=== PATIENT | male | born 1950 | race Caucasian/White ===

== ENCOUNTER 2021-05-10 08:52 | Day surgery (SDC) | payer MEDICARE, SELFPAY ==
--- NOTE | 2021-05-10 08:15 | PM.PREOP ---
Pre-operative Note COVID-19 COVID-19 status: Negative Interval Note History & Physical reviewed/Exam performed by Physician: Yes Changes to H&P: No
--- NOTE | 2021-05-10 08:15 | PM.OP.1 ---
Operative Date/Time/Diagnoses Date of procedure: 05/10/21 Time of procedure: 11:45 Procedure & Clinicians Procedure: Preoperative diagnoses: 1. Left complex surgery with use of capsular dye. 2. Mature or advanced nuclear sclerotic and cortical cataract with poor visibility of the anterior capsule increasing surgical risks of complications. 3. 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 4. History of alcoholism 5. Prostatic hypertrophy 6. Cardiac stents with cardio vascular disease 7. Hiatal hernia 8. Previous myocardial infarction 9. Gout 10. Hearing loss Postoperative diagnoses: 1. Left complex surgery with use of capsular dye, 2. Placement of a posterior chamber intraocular lens implant. Surgeon: Bernadine Ibrahim MD Complications: none Specimen: None Implant: DIBOO+20.5 Blood loss: None Anesthesia: Retrobulbar with monitored standby. Description of procedure: Dictated by: Bernadine Ibrahim MD Copy to: [facility] Post operative diagnoses: 1. Left complex cataract removed with use of capsular dye with placement of a posterior chamber intraocular lens. 2. Floppy eyelid syndrome was present. Procedure: Complex Phacoemulsification with posterior chamber intraocular lens implant Surgeon: Bernadine Ibrahim MD Blood loss: None Anesthesia: Retrobulbar with monitored standby Description of procedure: Patient has presented with advanced cataract causing decreased vision that driving and reading. He had no eye exams in several years and presented with advanced disease. The patient wants surgery to improve vision. Due to density of cataract will need capsular dye and he may need a Maluygin ring due to his possible floppy iris syndrome. He understands the extra risk of surgery during the COVID-19 epidemic and wishes to proceed. He has multiple medical conditions. He has tested negative for active COVID-19 virus within 72 hours of the procedure. The patient was taken to the operating room and given IV sedation. A retrobulbar block consisting of 6 cc of 2% xylocaine without epinephrine mixed half and half with 0.5% Marcaine with 1 cc of hyaluronidase added is placed between the medial and lateral 1/3 of the inferior orbital rim. Lid akinesia is obtain with 1% xylocaine with epinephrine infiltrated along the lid margin. The eye is manually massaged for 30 sec, prepped using Betadine solution, and draped in the usual sterile fashion. Temporal approach was made, a 1 mm side-port incision was performed 90 degrees from the planned corneal wound. Phenylephrine 1.5% mixed with 1% xylocaine 0.2 cc was placed into the anterior chamber. An air bubble was placed and Visudyne dye was placed to improve visibility of the anterior capsule. The dye was irrigated out to reduce bubbles. Endocoat followed by Healon was then placed. A 2.6 mm clear incision with a 2.6 mm blade was placed. The iris was too dilated to put in a capsular tension ring and surgery proceeded without using viscoelastic to keep the iris in position. A 360 degree capsulorrhexis style capsulotomy was then performed with a cystitome needle on a Healon. Hydrodelineation and hydrodissection were performed. The phacoemulsification unit is introduced, and sculpting used to groove the central lens. It is then removed in chopping mode. At this point the IA did experience floppy iris syndrome with the iris prolapsing to the side port and to the main wound. Extra EndoCoat was placed in reposition the iris. Epi nucleus is removed with epinuclear mode and irrigation aspiration was used to remove the peripheral cortex. The posterior capsule is polished. The intraocular lens is selected, inspected, power confirmed, and placed in the posterior chamber. The pupil was constricted with Miostat due to the floppy iris. A small epinuclear cortical remnant was also removed. The wound was stromally hydrated and tested for leaks, there was none and was left sutureless. Vigamox 0.1 cc was placed into the anterior chamber. Kenalog 0.2 cc was placed in the superior subconjunctival space. A bandage contact lens was placed for extra wound security. A drop of antibiotic and was placed and the eye was patched and shielded. The patient was stable and returned to the recovery room in excellent condition. He will take tamsulosin this morning postoperatively for prostate discomfort. For his right eye surgery a Maluygin ring will be used if possible. Dictated by: Bernadine Ibrahim MD Copy to: [facility] Same procedure as scheduled: Yes
[2021-05-10] MEDS: PROPARACAINE 0.5% OPHTH SOL 2 DROPS EYE-OP (10:13)
[2021-05-10] MEDS: CATARACT EYE COMPOUND (10 DROPS/SYRINGE) 3 DROPS EYE-OP (10:21)
[2021-05-10 10:42] VITALS: BP 179/91; PULSE 58; RESP 16; TEMP 36.6; O2SAT 99; BMI 27.8
[2021-05-10 10:58] VITALS: BMI 27.8
[2021-05-10] MEDS: LIDOCAINE 2% 4 ML, BUPIVACAINE 0.5% (PF) 4 ML, HYALURONIDASE 150 UNIT INJ (12:35)
[2021-05-10] MEDS: ERYTHROMYCIN OPHTH 1 GM OINT 1 APPLIC EYE-LEFT (12:46)
[2021-05-10] MEDS: MOXIFLOXACIN INJ 4 MG/0.8 ML VIAL 0.5 MG EYE-OP (12:47)
[2021-05-10] MEDS: HYALURONATE SODIUM 30 MG-10 MG/ML SYRINGES 1 BOX INTRAOCULA (12:47)
[2021-05-10] MEDS: PHENYLEPHRINE/LIDOCAINE VIAL (OR) 0.2 ML EYE-OP (12:48)
[2021-05-10] MEDS: TRYPAN BLUE 0.5 ML SYRINGE INJ (12:48)
[2021-05-10] MEDS: TRIAMCINOLONE 50 MG/5 ML VIAL INJ (12:48)
[2021-05-10] MEDS: BALANCED SALT IRRIG SOLN NO.2 500 ML, EPINEPHrine 1 MG IRR (12:49)
[2021-05-10] MEDS: CARBACHOL 1.5 ML VIAL INJ (13:19)
[2021-05-10 13:35] VITALS: BP 176/97; PULSE 61; RESP 18; TEMP 36.8; O2SAT 99
== END 2021-05-10 13:45 | disposition home or self-care (01) ==
PROVIDERS: Family Provider Nurse Practitioner; PCP Nurse Practitioner; Referring Provider Ophthalmology; Visit Provider Ophthalmology
PROC: (CPT 66984; principal; 2021-05-10 11:45)
DX: H25.812 Combined forms of age-related cataract, left eye (principal); I25.2 Old myocardial infarction; F17.210 Nicotine dependence, cigarettes, uncomplicated
CPT/HCPCS: 66984; J0171; J2704; J3301; J3470

== ENCOUNTER → 2023-02-12 14:43 | Outpatient (CLI) | payer MEDICARE, SELFPAY | PROVIDERS: Family Provider Nurse Practitioner; PCP Nurse Practitioner; Visit Provider Urology | DX: N40.0 Benign prostatic hyperplasia without lower urinary tract symptoms (principal) | CPT/HCPCS: 87086 ==

== ENCOUNTER 2023-04-11 10:19 | Emergency (ER) | payer OTHER, SELFPAY ==
[2023-04-11] VITALS (28 sets, daily range): BP systolic 77–150; BP diastolic 50–85; PULSE 56–100; RESP 12–25; TEMP 36.9; O2SAT 95–99; BMI 28.3
--- NOTE | 2023-04-11 10:30 | DI.RAD.S_ITS ---
PROCEDURE: XR CHEST 1V INDICATIONS: chest pain TECHNIQUE: One view of the chest was acquired. COMPARISON: None. FINDINGS: Surgical changes and devices: None. Lungs and pleura: Lungs are clear. No pleural effusions or pneumothorax. Mediastinum: Mediastinal contours appear normal. Heart size is normal. Bones and chest wall: No suspicious bony lesions. Overlying soft tissues appear unremarkable. IMPRESSION: No acute cardiopulmonary process. Dictated by: Andrea Hogue M.D. on 04/11/2023 at 11:49 Approved by: Andrea Hogue M.D. on 04/11/2023 at 11:50
[2023-04-11 10:38] LABS: Add Manual Diff / Slide Review NO; Basophils Absolute Auto 0 /uL (0-100); Basophils Percent Auto 0.5 % (0-2); Eosinophils Absolute Auto 100 /uL (0-450); Eosinophils Percent Auto 0.9 % (2-4); Hemoglobin 14.7 g/dL (13.5-17.5); Lymphocytes Absolute Auto 900 /uL (1100-4500); Lymphocytes Percent Auto 11.6 % (25-40); Mean Corpuscular Hemoglobin 31.3 PG (26-34); Mean Corpuscular Volume 89.5 fL (80-100); Monocytes Absolute Auto 700 /uL (0-900); Monocytes Percent Auto 9.1 % (3-14); Neutrophils Absolute Auto 5800 /uL (1500-7000); Neutrophils Percent Auto 77.9 % (50-75); Platelet Count 234 X10^3/uL (150-400); Red Blood Cell Count 4.69 X10^6/uL (4.5-5.9); Red Cell Distribution Width 13.7 % (11.6-14.8); White Blood Cell Count 7.4 X10^3/uL (4.5-11.0)
[2023-04-11 10:45] LABS: Prothrombin Time 11.3 SECONDS (10.1-12.7)
[2023-04-11 10:51] LABS: Alanine Aminotransferase 16 IU/L (<50); Albumin 4.1 g/dL (3.5-5.0); Albumin Globulin Ratio 1.3 (1.0-2.8); Alkaline Phosphatase 71 U/L (38-126); Aspartate Aminotransferase 20 IU/L (17-59); BUN Creatinine Ratio 8.9 (6-22); Bilirubin Total 0.5 mg/dL (0.2-1.3); Blood Urea Nitrogen 28 mg/dL (9-20); Carbon Dioxide 20 mmol/L (22-32); Chloride 103 mmol/L (98-107); Estimated Glomerular Filt Rate 20 mL/min (>60); Globulin 3.2 g/dL (1.7-4.1); Glucose 135 mg/dL (80-110); HEMOLYSIS 18 (0-50); Potassium 3.9 mmol/L (3.4-5.1); Sodium 134 mmol/L (137-145); Total Protein 7.3 g/dL (6.3-8.2)
[2023-04-11 10:52] LABS: Lactate (Lactic Acid) 1.7 mmol/L (0.7-2.1)
--- NOTE | 2023-04-11 11:00 | ED_ITS ---
HPI - Weakness General Chief complaint: Weakness Stated complaint: Weakness Time Seen by Provider: 04/11/23 10:27 Source: patient and EMS Mode of arrival: EMS History of Present Illness HPI Narrative: Patient brought in by air Flight/ambulance from [place], for 1 week of generalized malaise weakness decreased oral intake decreased drinking and eating. Has had coughing burning sensation in the chest and abdomen. No known sick contacts. Patient is being treated for UTI and currently on antibiotics he states. Abdominal pain. Feels very tired and weak when walking. Orthostatics were positive. Systolic 77 when he stood up and felt very dizzy and weak. Patient states does not feel like a stroke or heart attack Related Data Home Medications Medication Instructions Recorded Confirmed aspirin 325 mg tablet 325 mg PO QDAY ##2 12/09/12 02/20/23 acyclovir 800 mg tablet 800 mg PO DAILY 05/10/21 02/20/23 Previous Rx's Medication Instructions Recorded omeprazole 20 mg capsule,delayed 20 mg PO BID PRN #90 caps 02/24/16 release atorvastatin 10 mg tablet (Lipitor) 10 mg PO HS #90 tabs 09/27/16 tamsulosin 0.4 mg capsule (Flomax) 0.4 mg PO QDAY #7 caps 03/11/17 Allergies Allergy/AdvReac Type Severity Reaction Status Date / Time lisinopril [LISINOPRIL] Allergy Mild MENTAL Verified 02/20/23 07:56 CHANGES Review of Systems Review of Systems Narrative: GENERAL: negative chills, positive fatigue, malaise, negative fever, sweats. HEENT: negative sinus pain, ear pain, sore throat RESPIRATORY: negative dyspnea, cough CARDIOVASCULAR: negative chest pain, palpitations GASTROINTESTINAL: negative nausea, vomiting, abdominal pain : negative dysuria, frequency, hematuria MUSCULOSKELETAL: negative muscle or bony pain SKIN: negative rash, skin lesions NEUROLOGIC: negative weakness, numbness, positive dizziness ROS Unobtainable: All systems reviewed & are unremarkable except as noted in HPI and below Patient History Medical History Acute urinary retention Deficient knowledge of leg surgery Elevated PSA History of urinary tract infection Lower urinary tract symptoms Myocardial infarction Orbital fracture Surgical History Hx of heart artery stent Social History household members: friend(s) Smoking Status: Current every day smoker Smoking Status: Current every day smoker alcohol intake frequency: a few times a week Alcohol type: beer Substance Use Type: does not use Exam Narrative Exam Narrative: GENERAL: in no distress, not toxic not dyspneic HEAD: Normocephalic. EYES: Pupils equal round ENT: Mucous membranes moist. NECK: Trachea midline. CARDIOVASCULAR: Regular rate and rhythm RESPIRATORY: Clear to auscultation. Breath sounds equal bilaterally. No wheezes, rales, or rhonchi. GASTROINTESTINAL: Abdomen soft, non-tender EXTREMITIES: No gross deformities. BACK: No flank tenderness. NEURO: AOx4. SKIN: Warm and dry PSYCH: Not anxious, is cooperative Initial Vital Signs Initial Vital Signs: Vital Signs Pulse Rate 82 04/11/23 10:26 Blood Pressure 108/68 04/11/23 10:26 Pulse Oximetry 99 04/11/23 10:26 Course Orders Ordered: Discontinued Medications Sodium Chloride (Normal Saline 0.9%) 1,000 mls @ 1,000 mls/hr IV BOLUS ONE Stop: 04/11/23 11:30 Last Infusion: 04/11/23 13:17 Dose: Infused Documented By: Admin: 04/11/23 11:30 Dose: 1,000 mls/hr Documented By: DEISY Sodium Chloride (Normal Saline 0.9%) 1,000 mls @ 1,000 mls/hr IV BOLUS ONE Stop: 04/11/23 13:02 Last Infusion: 04/11/23 14:19 Dose: Infused Documented By: Admin: 04/11/23 13:17 Dose: 1,000 mls/hr Documented By: RICHARD Vital Signs Vital signs: Vital Signs - 8 hr 04/11/23 10:33 04/11/23 10:54 04/11/23 11:37 Temperature 98.4 F Pulse Rate 85 Pulse Rate [Orthostatic Lying] 85 Pulse Rate [Orthostatic Sitting] 80 Respiratory Rate 14 Blood Pressure 108/68 137/77 Blood Pressure [Orthostatic Lying] 108/68 Blood Pressure [Orthostatic Sitting] 114/70 Blood Pressure [Orthostatic Standing] 77/50 L Pulse Oximetry 97 Oxygen Delivery Method Room Air 04/11/23 10:26 04/11/23 10:26 04/11/23 10:27 Temperature Pulse Rate 82 Pulse Rate [Orthostatic Lying] Pulse Rate [Orthostatic Sitting] Respiratory Rate Blood Pressure 108/68 114/70 Blood Pressure [Orthostatic Lying] Blood Pressure [Orthostatic Sitting] Blood Pressure [Orthostatic Standing] Pulse Oximetry 99 Oxygen Delivery Method 04/11/23 10:27 04/11/23 10:29 04/11/23 10:29 Temperature Pulse Rate 80 100 H Pulse Rate [Orthostatic Lying] Pulse Rate [Orthostatic Sitting] Respiratory Rate Blood Pressure 77/50 L Blood Pressure [Orthostatic Lying] Blood Pressure [Orthostatic Sitting] Blood Pressure [Orthostatic Standing] Pulse Oximetry 99 97 Oxygen Delivery Method 04/11/23 10:30 04/11/23 10:31 04/11/23 10:31 Temperature Pulse Rate 76 82 Pulse Rate [Orthostatic Lying] Pulse Rate [Orthostatic Sitting] Respiratory Rate Blood Pressure 108/63 Blood Pressure [Orthostatic Lying] Blood Pressure [Orthostatic Sitting] Blood Pressure [Orthostatic Standing] Pulse Oximetry 97 96 Oxygen Delivery Method 04/11/23 11:00 04/11/23 11:00 04/11/23 11:30 Temperature Pulse Rate 70 80 Pulse Rate [Orthostatic Lying] Pulse Rate [Orthostatic Sitting] Respiratory Rate 19 19 Blood Pressure 114/67 Blood Pressure [Orthostatic Lying] Blood Pressure [Orthostatic Sitting] Blood Pressure [Orthostatic Standing] Pulse Oximetry 97 98 Oxygen Delivery Method 04/11/23 11:31 04/11/23 11:31 04/11/23 12:00 Temperature Pulse Rate 80 Pulse Rate [Orthostatic Lying] Pulse Rate [Orthostatic Sitting] Respiratory Rate 21 Blood Pressure 139/77 111/63 Blood Pressure [Orthostatic Lying] Blood Pressure [Orthostatic Sitting] Blood Pressure [Orthostatic Standing] Pulse Oximetry 98 Oxygen Delivery Method 04/11/23 12:00 04/11/23 12:20 04/11/23 12:20 Temperature Pulse Rate 67 74 Pulse Rate [Orthostatic Lying] Pulse Rate [Orthostatic Sitting] Respiratory Rate 20 13 Blood Pressure 125/70 Blood Pressure [Orthostatic Lying] Blood Pressure [Orthostatic Sitting] Blood Pressure [Orthostatic Standing] Pulse Oximetry 95 97 Oxygen Delivery Method 04/11/23 12:30 04/11/23 12:30 04/11/23 13:00 Temperature Pulse Rate 67 Pulse Rate [Orthostatic Lying] Pulse Rate [Orthostatic Sitting] Respiratory Rate 18 Blood Pressure 127/59 L 124/66 Blood Pressure [Orthostatic Lying] Blood Pressure [Orthostatic Sitting] Blood Pressure [Orthostatic Standing] Pulse Oximetry 95 Oxygen Delivery Method 04/11/23 13:00 04/11/23 13:30 04/11/23 13:30 Temperature Pulse Rate 66 60 Pulse Rate [Orthostatic Lying] Pulse Rate [Orthostatic Sitting] Respiratory Rate 19 19 Blood Pressure 118/73 Blood Pressure [Orthostatic Lying] Blood Pressure [Orthostatic Sitting] Blood Pressure [Orthostatic Standing] Pulse Oximetry 95 97 Oxygen Delivery Method 04/11/23 14:00 04/11/23 14:07 04/11/23 14:07 Temperature Pulse Rate 76 64 Pulse Rate [Orthostatic Lying] Pulse Rate [Orthostatic Sitting] Respiratory Rate 17 21 Blood Pressure 126/78 Blood Pressure [Orthostatic Lying] Blood Pressure [Orthostatic Sitting] Blood Pressure [Orthostatic Standing] Pulse Oximetry 96 99 Oxygen Delivery Method 04/11/23 14:30 04/11/23 14:30 Temperature Pulse Rate 63 Pulse Rate [Orthostatic Lying] Pulse Rate [Orthostatic Sitting] Respiratory Rate 19 Blood Pressure 114/68 Blood Pressure [Orthostatic Lying] Blood Pressure [Orthostatic Sitting] Blood Pressure [Orthostatic Standing] Pulse Oximetry 97 Oxygen Delivery Method MDM - Weakness Lab Data 04/11/23 10:28 04/11/23 14:15 Labs: Lab Results 04/11/23 04/11/23 04/11/23 Range/Units 10:28 10:30 14:15 WBC 7.4 (4.5-11.0) X10^3/uL RBC 4.69 (4.5-5.9) X10^6/uL Hgb 14.7 (13.5-17.5) g/dL Hct 42.0 (41-53) % MCV 89.5 (80-100) fL MCH 31.3 (26-34) PG MCHC 35.0 (30-36) % RDW 13.7 (11.6-14.8) % Plt Count 234 (150-400) X10^3/uL Neut % (Auto) 77.9 H (50-75) % Lymph % (Auto) 11.6 L (25-40) % [place] % (Auto) 9.1 (3-14) % Eos % (Auto) 0.9 L (2-4) % Baso % (Auto) 0.5 (0-2) % Neut # (Auto) 5800 (1012-9652) /uL Lymph # (Auto) 900 L (4484-1593) /uL [place] # (Auto) 700 (0-900) /uL Eos # (Auto) 100 (0-450) /uL Baso # (Auto) 0 (0-100) /uL PT 11.3 (10.1-12.7) SECONDS INR 1.0 (0.9-1.3) Sodium 134 L 137 (137-145) mmol/L Potassium 3.9 4.0 (3.4-5.1) mmol/L Chloride 103 109 H (98-107) mmol/L Carbon Dioxide 20 L 19 L (22-32) mmol/L BUN 28 H 22 H (9-20) mg/dL Creatinine 3.16 H 2.29 H (0.66-1.25) mg/dL Estimated GFR 20 L 30 L (>60) mL/min BUN/Creatinine Ratio 8.9 9.6 (6-22) Glucose 135 H 106 (80-110) mg/dL Lactate 1.7 (0.7-2.1) mmol/L Calcium 11.0 H 10.0 (8.4-10.2) mg/dL Total Bilirubin 0.5 (0.2-1.3) mg/dL AST 20 (17-59) IU/L ALT 16 (<50) IU/L Alkaline Phosphatase 71 (38-126) U/L Troponin I 0.645 H* 0.546 H* (0.01-0.034) ng/mL Total Protein 7.3 (6.3-8.2) g/dL Albumin 4.1 (3.5-5.0) g/dL Globulin 3.2 (1.7-4.1) g/dL Albumin/Globulin Ratio 1.3 (1.0-2.8) Procalcitonin 0.22 (<0.5) ng/mL Urine Color Yellow Urine Appearance Clear Urine pH 5.5 (4.5-8.0) Ur Specific [place] 1.020 (1.000-1.035) Urine Protein Trace H (Negative) Urine Glucose (UA) Negative (Negative) g/dL Urine Ketones 1+ H (NEGATIVE) Urine Occult Blood Negative (Negative) Urine Nitrate Negative (Negative) Urine Bilirubin 2+ H (NEGATIVE) Ur Bilirubin Confirm Negative (Negative) Urine Urobilinogen 0.2 (0.2) E.U./dL Ur Leukocyte Esterase Negative (NEGATIVE) Chlamy pneumoniae PCR Not detected (Not Detect) Adenovirus (PCR) Not detected (Not Detect) B. pertussis DNA (PCR) Not detected (Not Detecte) B.parapertussis DNA PCR Not detected (Not Detecte) Coronavirus OC43 (PCR) Not detected (Not Detect) Coronavirus HKU1 (PCR) Not detected (Not Detect) Coronavirus 229E (PCR) Not detected (Not Detect) SARS-CoV-2 (PCR) Not detected (Not Detecte) Coronavirus NL63 (PCR) Not detected (Not Detect) Human Metapneumovir PCR Not detected (Not Detect) Influenza Type A (PCR) Not detected (Not Detect) Influenza Type B (PCR) Not detected (Not Detect) M. pneumoniae (PCR) Not detected (Not Detect) Parainfluenza 1 (PCR) Not detected (Not Detect) Parainfluenza 2 (PCR) Not detected (Not Detect) Parainfluenza 3 (PCR) Not detected (Not Detect) Parainfluenza 4 (PCR) Not detected (Not Detect) RSV (PCR) Not detected (Not Detect) Entero/Rhino (PCR) Not detected (Not Detect) Imaging Data CT scan - abdomen/pelvis: Radiologist Impression: [place] [address] CT Scan Report Signed Patient: Alfredo Alaniz MR#: [id number] : 1950 Acct:[id number] Age/Sex: 72 / M Date of Service: 04/11/23 Loc: ED Accession Number: [id number] ?? Procedure: CT abdomen pelvis wo con Ordering Provider: Devante Isaacs MD PROCEDURE:? CT ABDOMEN PELVIS WO CON ? INDICATIONS:? Flank pain ? TECHNIQUE:? Axial sections were acquired from the lung bases to the pubic symphysis.? Coronal and sagittal reformats were performed.? For radiation dose reduction, the following was used: ?automated exposure control, adjustment of mA and/or kV according to patient size.? ? COMPARISON:? None. ? FINDINGS:? Image quality:? Excellent.? ? Lung bases:? Unremarkable.? ? Heart:? No significant findings. ? URINARY: Right Kidney: ? No stones or hydronephrosis.? Right Ureter:? No hydroureter.? ? Left Kidney: ? No stones or hydronephrosis. Left Ureter:? No hydroureter.? ? Bladder:? Normal wall thickness. No stones. ? ? ? ABDOMEN: Liver:? Unremarkable.? ? Gallbladder:? Contracted, otherwise unremarkable without calcified stones.? ? Biliary ducts:? Unremarkable.? ? Pancreas:? Fatty atrophy of the pancreas. Spleen:? Unremarkable.? ? Adrenal Glands:? Unremarkable.? ? ? Stomach and Bowel:? Stomach, small bowel loops, and colon are unremarkable.? Normal appendix.? Diverticulosis without evidence of acute diverticulitis. Peritoneum:? No abnormal intraperitoneal fluid.? No free air.? ? Ventral Wall: ? No hernia.? Abdominal Nodes:? No enlarged retroperitoneal or mesenteric lymph nodes.? Vessels:? Aorta and inferior vena cava are normal in size.? ? PELVIS: Pelvic Organs:? Posterior bladder wall diverticulum.? Pelvic Nodes: Unremarkable. Miscellaneous:? Small bilateral fat containing inguinal hernias. ? Bones:? Multilevel degenerative changes of the lumbar spine. ? IMPRESSION:? ? 1. No cause for patient's symptoms is identified.? No renal stones or hydronephrosis. 2. Diverticulosis without evidence of acute diverticulitis. ? ? ? Dictated by: Andrea Hogue M.D. on 04/11/2023 at 12:31 ? ? Approved by: Andrea Hogue M.D. on 04/11/2023 at 12:35 ? Chest x-ray: Radiologist Impression: [address] [address] XRay Report Signed Patient: Alfredo Alaniz MR#: [id number] : 1950 Acct:[id number] Age/Sex: 72 / M Date of Service: 04/11/23 Loc: ED Accession Number: [id number] ?? Procedure: XR chest 1V Ordering Provider: Devante Isaacs MD PROCEDURE:? XR CHEST 1V ? INDICATIONS:? chest pain ? TECHNIQUE:? One view of the chest was acquired.? ? COMPARISON:? None. ? FINDINGS:? ? Surgical changes and devices:? None.? ? Lungs and pleura:? Lungs are clear.? No pleural effusions or pneumothorax.? ? Mediastinum:? Mediastinal contours appear normal.? Heart size is normal.? ? Bones and chest wall:? No suspicious bony lesions.? Overlying soft tissues appear unremarkable.? ? ? IMPRESSION:? No acute cardiopulmonary process. ? ? Dictated by: Andrea Hogue M.D. on 04/11/2023 at 11:49 ? ? Approved by: Andrea Hogue M.D. on 04/11/2023 at 11:50 ? MDM Narrative Medical decision making narrative: Patient brought in by air Flight/ambulance from [facility], for 1 week of generalized malaise weakness decreased oral intake decreased drinking and eating. Has had coughing burning sensation in the chest and abdomen. No known sick contacts. Patient is being treated for UTI and currently on antibiotics he states. Abdominal pain. Feels very tired and weak when walking. Orthostatics were positive. Systolic 77 when he stood up and felt very dizzy and weak. After history and exam CBC CMP urinalysis chest x-ray EKG troponin lactic acid procalcitonin orthostatics normal saline [facility] CC: Weakness Complicating co-morbidities: Current UTI treatment, history of stroke and [place] Data collected from: Patient and EMS Medical records reviewed: No recent visit for this complaint Differential considered: Includes but not limited to sepsis dehydration acute renal injury UTI viral syndrome Exam documented above, pertinent findings include: Nontender abdomen nontender chest Lab Test results independently reviewed as above. Pertinent findings: WBC 7.4 hemoglobin 14.7 INR 1.0 sodium 134 potassium 3.9 bicarb 20 BUN 28 creatinine 3.16 GFR 20 AST 20 ALT 16 lactic acid 1.7 Troponin 0.645 Repeat chemistries sodium 137 potassium 4.0 BUN 22 creatinine 2.29 GFR 30 Repeat troponin 0.546 Independently reviewed EKG sinus rhythm rate [address] elevation or depression Imaging studies independently reviewed: Chest x-ray CT scan abdomen pelvis no acute findings Consultations: 12:00 p.m.. Spoke with [facility] Cardiology Dr. Phil Hankins, at this time troponin does not correlate with anything cardiac symptoms. Likely related to renal function/injury. Recommends observation echocardiogram fluid hydration repeat renal function and troponin. Would not transfer or do heart catheterization at this time. No heparin indicated. 1:47 p.m.. Spoke with [facility], Dr. Abreu, at this time he does not feel this is cardiac related elevated troponin and it is more due to dehydration and poor kidney function. Would not start heparin. Would not do stress test at this time. Would not do heart catheterization. Recommends admit to hospitalist/hydration/repeat labs/renal function and troponin 3:10 p.m.. Spoke with [facility], hospitalist, Dr. Nino, he will accept patient Treatments: Normal saline Re-evaluations: 3:17 p.m.. Patient feeling better after IV hydration. Reviewed results with him and does understand need for transfer for elevated troponin and monitoring kidney function. This past summer his renal function was normal according to Dr. Nino Discussion: Appropriate for transfer for acute renal injury and observation for elevated troponin. No heparin indicated this time, I reviewed with to cardiology services. Not toxic at transfer. Patient responded very well with IV hydration. Low blood pressure likely to dehydration, renal function likely prerenal Diagnosis: Acute renal injury elevated troponin Discharge Plan Departure [facility] Clinical Impression: Acute kidney injury, Elevated troponin Prescriptions: No Action aspirin 325 MG tablet 325 mg PO QDAY Qty: 2 omeprazole 20 MG capsule,delayed release(DR/EC) 20 mg PO BID PRNQty: 90 1RF atorvastatin [Lipitor] 10 MG tablet 10 mg PO HS Qty: 90 1RF tamsulosin [Flomax] 0.4 MG capsule,extended release 24hr 0.4 mg PO QDAY Qty: 7 0RF acyclovir 800 MG tablet 800 mg PO DAILY Referrals: Carrol Ramsay ARNP [Primary Care Provider] -
[2023-04-11 11:06] LABS: Procalcitonin 0.22 ng/mL (<0.5)
[2023-04-11] MEDS: SODIUM CHLORIDE 0.9% 1,000 ML 1000 ML IV ×2 (11:30→13:17)
[2023-04-11 11:35] LABS: Troponin I 0.645 ng/mL (0.01-0.034)
[2023-04-11 11:39] LABS: Appearance Urine UA CLEAR; Bilirubin Urine UA 2+ (NEGATIVE); Color Urine UA YELLOW; Glucose Urine UA NEGATIVE (Negative); Ketones Urine UA 1+ (NEGATIVE); Leukocyte Esterase Urine UA NEGATIVE (NEGATIVE); Nitrite Urine UA NEGATIVE (Negative); Occult Blood Urine UA NEGATIVE (Negative); Protein Urine UA TRACE (Negative); Urobilinogen Urine UA 0.2 E.U./dL (0.2); pH Urine UA 5.5 (4.5-8.0)
[2023-04-11 12:00] LABS: Ictotest Urine Negative (Negative)
--- NOTE | 2023-04-11 12:01 | DI.ECHO.S_ITS ---
[facility]---------+ [facility] +---------+ : : [address] : [address] : : : : [id number] : : : : Phone: [phone]---------+ Echocardiogram Report + + :Name: ALEX MOSQUERA Study Date: 04/11/2023 Height: 72 in : :[facility] ReadingLocation: Weight: 209 lb : : Gender: Male BSA: 2.2 m2 : :: 1950 Age: 72 yrs BP: 111/68 mmHg: :Reason For Study: CHEST PAIN : :Ordering Physician: HECTOR, : :CARO CARLOS Performed By: Connie Francisco : :Referring: CARO YOUNG MD : + + Interpretation Summary The ejection fraction is estimated to be 60-65%. Diastolic parameters suggest probable normal left ventricular diastolic function and normal filling pressures. The right ventricle is normal in size and function. No significant valvular abnormalities. Pulmonary artery pressures cannot be estimated because of the lack of a measurable TR jet velocity but the IVC suggests a CVP of around 3 mmHg. Procedure: A two-dimensional transthoracic echocardiogram with color flow and Doppler was performed. The study quality was technically adequate. There is no prior echocardiogram noted for this patient. The patient was in sinus rhythm with heart rates between 58-71 bpm during the exam. Left Ventricle: The left ventricle is normal in size and wall thickness. The ejection fraction is estimated to be 60-65%. Diastolic parameters suggest probable normal left ventricular diastolic function and normal filling pressures. Right Ventricle: The right ventricle is normal in size and function. Atria: The left atrial size is normal. Right atrial size is normal. There is no Doppler evidence for an interatrial shunt. Mitral Valve: The mitral valve leaflets appear normal. There is no evidence of stenosis, fluttering, or prolapse. There is no mitral regurgitation noted. Aortic Valve: The aortic valve is mildly calcified. There is mildly reduced leaflet mobility. There is no hemodynamically significant valvular aortic stenosis. No aortic regurgitation is present. Tricuspid Valve: The tricuspid valve is normal in structure and function. There is trace tricuspid regurgitation. Pulmonary artery pressures cannot be estimated because of the lack of a measurable TR jet velocity but the IVC suggests a CVP of around 3 mmHg. Pulmonic Valve: The pulmonic valve is not well visualized. There is no pulmonic valvular regurgitation. Great Vessels: The aortic root is normal size. The dimensions of the ascending aorta are normal. The IVC is of normal diameter and collapses greater than 50% with a sniff. This suggests a low right atrial pressure of 3 mm Hg. Pericardium/ Pleura There is no pericardial effusion. There is no pleural effusion. MMode/2D Measurements & Calculations LVIDd: 4.9 cm LVOT diam: 2.1 cm LVIDs: 3.2 cm Ao root diam: 3.6 cm FS: 35.9 % asc Aorta Diam: 3.4 cm EPSS: 0.63 cm Ao Arch Diam (Prox Trans): 2.9 cm IVSd: 0.83 cm LVPWd: 0.71 cm LV gallegos. diameter/BSA (cm/m^2): 2.3 LV sys. diameter/BSA (cm/m^2): 1.5 LA A2 area: 21.5 cm2 RA long axis: 4.8 cm LA A4 area: 13.5 cm2 RA area: 15.1 cm2 LA length (vol): 4.6 cm RA vol: 40.4 ml LA vol: 53.8 ml RA : 18.6 ml/m2 LA vol index: 24.8 ml/m2 IVC diam: 1.4 cm RVD1 (basal): 3.3 cm RVD2 (mid): 2.6 cm TAPSE: 2.5 cm Doppler Measurements & Calculations Ao V2 max: 169.8 cm/sec LVOT Max Liang: 124.8 cm/sec Ao V2 mean: 123.6 cm/sec LV V1 max P.3 mmHg Ao max P.6 mmHg LV V1 VTI: 25.0 cm Ao mean P.8 mmHg TYLER(I,D): 2.6 cm2 Ao V2 VTI: 33.9 cm TYLER(V,D): 2.6 cm2 sev ratio: 0.74 TYLER indexed to BSA (cm^2/m^2): 1.2 MV E max liang: 72.1 cm/sec PA V2 max: 111.2 cm/sec MV A max liang: 107.6 cm/sec PA V2 mean: 87.4 cm/sec MV E/A: 0.67 PA mean P.2 mmHg Med Peak E' Liang: 7.1 cm/sec PA pr(Accel): 48.2 mmHg E/E' med: 10.2 Lat Peak E' Liang: 5.8 cm/sec E/E' lat: 12.5 E/e' average: 11.3 MV dec time: 0.27 sec SVLVOT): 87.1 ml Reading Physician:03:[id number] PM
--- NOTE | 2023-04-11 12:02 | DI.CT.S_ITS ---
PROCEDURE: CT ABDOMEN PELVIS WO CON INDICATIONS: Flank pain TECHNIQUE: Axial sections were acquired from the lung bases to the pubic symphysis. Coronal and sagittal reformats were performed. For radiation dose reduction, the following was used: automated exposure control, adjustment of mA and/or kV according to patient size. COMPARISON: None. FINDINGS: Image quality: Excellent. Lung bases: Unremarkable. Heart: No significant findings. URINARY: Right Kidney: No stones or hydronephrosis. Right Ureter: No hydroureter. Left Kidney: No stones or hydronephrosis. Left Ureter: No hydroureter. Bladder: Normal wall thickness. No stones. ABDOMEN: Liver: Unremarkable. Gallbladder: Contracted, otherwise unremarkable without calcified stones. Biliary ducts: Unremarkable. Pancreas: Fatty atrophy of the pancreas. Spleen: Unremarkable. Adrenal Glands: Unremarkable. Stomach and Bowel: Stomach, small bowel loops, and colon are unremarkable. Normal appendix. Diverticulosis without evidence of acute diverticulitis. Peritoneum: No abnormal intraperitoneal fluid. No free air. Ventral Wall: No hernia. Abdominal Nodes: No enlarged retroperitoneal or mesenteric lymph nodes. Vessels: Aorta and inferior vena cava are normal in size. PELVIS: Pelvic Organs: Posterior bladder wall diverticulum. Pelvic Nodes: Unremarkable. Miscellaneous: Small bilateral fat containing inguinal hernias. Bones: Multilevel degenerative changes of the lumbar spine. IMPRESSION: 1. No cause for patient's symptoms is identified. No renal stones or hydronephrosis. 2. Diverticulosis without evidence of acute diverticulitis. Dictated by: Andrea Hogue M.D. on 04/11/2023 at 12:31 Approved by: Andrea Hogue M.D. on 04/11/2023 at 12:35
[2023-04-11 12:10] LABS: Adenovirus Not Detected (Not Detect); B. parapertussis Not Detected (Not Detecte); Bordetella pertussis Not Detected (Not Detecte); Chlamydophila pneumoniae Not Detected (Not Detect); Coronavirus 229E Not Detected (Not Detect); Coronavirus HKU1 Not Detected (Not Detect); Coronavirus NL 63 Not Detected (Not Detect); Coronavirus OC43 Not Detected (Not Detect); Human Metapneumovirus Not Detected (Not Detect); Human Rhinovirus/Enterovirus Not Detected (Not Detect); Influenza A Not Detected (Not Detect); Influenza B Not Detected (Not Detect); Mycoplasma pneumoniae Not Detected (Not Detect); Parainfluenza Virus 1 Not Detected (Not Detect); Parainfluenza Virus 2 Not Detected (Not Detect); Parainfluenza Virus 3 Not Detected (Not Detect); Parainfluenza Virus 4 Not Detected (Not Detect); Respiratory Syncytial Virus Not Detected (Not Detect); SARS- CoV-2 Not Detected (Not Detecte)
[2023-04-11 14:48] LABS: BUN Creatinine Ratio 9.6 (6-22); Blood Urea Nitrogen 22 mg/dL (9-20); Carbon Dioxide 19 mmol/L (22-32); Chloride 109 mmol/L (98-107); Estimated Glomerular Filt Rate 30 mL/min (>60); Glucose 106 mg/dL (80-110); HEMOLYSIS 39 (0-50); Sodium 137 mmol/L (137-145)
[2023-04-11 15:19] LABS: Troponin I 0.546 ng/mL (0.01-0.034)
== END 2023-04-11 19:30 | disposition short-term general hospital (02) ==
PROVIDERS: Emergency Provider Emergency Medicine; Family Provider Nurse Practitioner; PCP Nurse Practitioner
DX: N17.9 Acute kidney failure, unspecified (principal); R77.8 Other specified abnormalities of plasma proteins; R07.9 Chest pain, unspecified; Z20.822 Contact with and (suspected) exposure to COVID-19
CPT/HCPCS: 71045; 74176; 80048; 80053; 81003; 83605; 84145; 84484; 85025; 85610; 87633; 93005; 93306; 96360; 96361; 99284